=== PATIENT | female | born 1950 | race Caucasian/White ===

== ENCOUNTER 2019-11-08 19:04 | Emergency (ER) | payer MEDICARE, OTHER, SELFPAY ==
--- NOTE | ~2019-11-08 | CT_ITS ---
EXAMINATION: CT abdomen pelvis w con INDICATION: Abdominal pain, history of esophageal cancer TECHNIQUE: Computed tomographic images of the abdomen and pelvis were obtained after the administrati on of 100 cc of Omnipaque 350 intravenous contrast. The dose-length product (DLP) was 153.03 mGy-cm. Automated exposure control and iterative reconstruction technique were employed. COMPARISON: 09/03/2015 FINDINGS: Minimal dependent atelectasis is present in the lung bases. The heart size is normal. There appear to be changes of gastric pull-through. The gallbladder is surgically absent. There is mild en largement of the common bile duct and central intrahepatic ducts which is likely due to post cholecys tectomy state. The liver, spleen, pancreas, and adrenal glands are normal. The kidneys are unremarkab le. No pathologically enlarged abdominal or pelvic lymph nodes are identified. There is no free intra peritoneal gas. There appears to be a percutaneous jejunal tube in the left lower quadrant. There are multiple fluid-filled small bowel loops of the left abdomen which are upper limits of normal in [place]. The distal small bowel is relatively decompressed. The transition is at the site of the balloon in the percutaneous tube. There is mild lumbar spondylosis. IMPRESSION: 1. No CT correlate for the patient's symptoms. 2. Fluid-filled, nondistended loops of small bowel with transition at the site of the balloon of the percutaneous jejunal tube. Reviewed, dictated and finalized at location A.
[2019-11-08 19:10] VITALS: BP 187/104; PULSE 92; RESP 18; TEMP 36.3; O2SAT 99
--- NOTE | 2019-11-08 19:13 | ED.ABDPAIN ---
HPI - Abdominal Pain General Chief Complaint: Abdominal Pain Stated Complaint: abd pain Time Seen by Provider: 11/08/19 19:05 Source: RN notes reviewed History of Present Illness HPI narrative: Patient presents emergency department from home via EMS for abdominal pain. Patient symptoms began yesterday. Associated with diarrhea. Patient states abdominal pain is diffuse and described as sharp and stabbing in nature. She does have a history of esophageal cancer and currently receiving chemo with last chemo this week and is followed at [facility] for oncology. She denies any fevers or chills chest pain shortness of breath vomiting or any other symptoms. States that her J-tube is more taut than it normally is Related Data Home Medications Medication Instructions Recorded Confirmed gabapentin 100 mg PO HS 11/08/19 11/08/19 ondansetron 8 mg PO Q8H 11/08/19 11/08/19 scopolamine base See Rx Instructions .ROUTE .COMPLEX 11/08/19 11/08/19 sucralfate 10 ml PO QID 11/08/19 11/08/19 Allergies Allergy/AdvReac Type Severity Reaction Status Date / Time amoxicillin [From Augmentin] AdvReac Severe Other Verified 11/08/19 20:10 clavulanic acid AdvReac Severe Other Verified 11/08/19 20:10 [From Augmentin] Review of Systems Review of Systems: Narrative: Gen.: Denies fevers or chills ENT: Denies congestion Respiratory: Denies shortness of breath or cough CV: Denies chest pain or palpitations GI: See HPI denies burning, urgency, frequency or hematuria Musculoskeletal: Denies back pain or muscle pain Neuro: Denies numbness, tingling, weakness or focal weakness Skin: Denies rash Except as documented, all other systems reviewed and negative [facility] Past Medical History Medical History (Updated 11/08/19 @ 23:16 by Jigar Avendano DO) Esophageal cancer Social History Social History Smoking status: Never smoker Alcohol intake: current Exam Narrative: Exam Narrative: APPEARANCE: No acute distress, nontoxic, resting in bed HEENT: Normocephalic, atraumatic, OMM RESPIRATORY: No respiratory distress, clear to auscultation bilaterally with no rhonchi wheezing or rales CARDIOVASCULAR: RRR s murmur ABDOMINAL: Soft, nondistended, diffusely tender to palpation, no rebound or guarding MUSCULOSKELETAl: Moves all extremities. No clubbing, cyanosis or edema. NEURO: Awake and alert. Following commands, speech normal, no focal deficits SKIN:: Warm, dry. Normal Color PSYCHIATRIC: Normal affect/mood Course Course Emergency Course: Patient states J tube was placed last in April of this year in [place]. She states that she only takes through food through J-tube and takes nothing orally. Patient did have a gastrectomy performed at [facility] approximately year and a half ago. Her last chemo was this past Sunday Reviewed with Dr. Flores presentation work-up. At this time recommends attempting to take fluid out of balloon of J-tube and then refill eating with a smaller amount of fluid.' Attempted to remove fluid from J-tube and unable to withdraw any fluid. Discussed Dr. Llamas for GI presentation work-up. At this time facility not he will handle J-tube replacement Eddi with patient and will try for transfer to [place] Discussed with Dr. Henry for hospitalist service at [facility] excepts transfer at this time request I discussed with general surgery and request patient start on vancomycin and cefepime Discussed with Dr. Carrera for general surgery at [facility]. Agrees with plan for transfer and will see patient when they arrived at [place] Patient to get up to use the restroom. At that time the J-tube been did give back to its normal give which patient states is now at its normal positioning and states she has improvement of pain Discussed with patient her allergy to Augmentin states that increases her liver enzymes no anaphylactic reaction. Discussed p
[2019-11-08 19:29] LABS: Basophils Percent Auto 0.9 % (0.2-1.2); Eosinophils Percent Auto 0.3 % (0-4.4); Hematocrit 42.3 % (37.0-47.0); Hemoglobin 13.6 g/dL (12.0-15.0); Immature Granulocyte Absolute 0.01 K/mm3 (0.00-0.031); Immature Granulocyte Percent A 0.3 % (0-0.5); Lymphocytes Absolute Auto 0.59 K/mm3 (0.9-3.2); Lymphocytes Percent Auto 18.1 % (18.3-44.2); Mean Corpuscular HGB Conc 32.2 g/dl (32-36); Mean Corpuscular Hemoglobin 29.1 pg (26-34); Mean Corpuscular Volume 90.4 fl (80-100); Mean Platelet Volume 9.9 fl (7.4-10.4); Monocytes Absolute Auto 0.2 K/mm3 (0.1-0.6); Monocytes Percent Auto 6.7 % (2.6-8.5); Neutrophils Absolute Auto 2.4 K/mm3 (1.3-6.7); Neutrophils Percent Auto 73.7 % (45.5-73.1); Platelet Count Result 187 k/mm3 (150-375); Red Blood Count 4.68 M/mm3 (4.2-5.4); Red Cell Distribution Width 14.8 % (11.5-14.5); White Blood Count 3.3 K/mm3 (4.5-10.0)
[2019-11-08 19:40] LABS: Partial Thromboplastin Time 21.8 SECONDS (22.3-36.8); Prothrombin Time 12.8 Seconds (11.1-14.7)
--- NOTE | 2019-11-08 19:45 | PC.NURSE ---
Patient unable to provide urine at this time. Reporting severe nausea and pain.
[2019-11-08 19:46] LABS: Estimated CRCL calculation 63 ml/min; Estimated Glomerular Filt Rate > 60
[2019-11-08 19:54] LABS: Alanine Aminotransferase 72 U/L (4-35); Albumin Level 4.4 g/dL (3.5-5.1); Alkaline Phosphatase 238 U/L (38-126); Anion Gap 13 mmol/L (8-16); Aspartate Amino Transferase 42 U/L (14-36); Bilirubin,Total 0.9 mg/dL (0.2-1.3); Blood Urea Nitrogen 16 mg/dL (7-17); Calcium 9.7 mg/dL (8.4-10.2); Carbon Dioxide 22 mmol/L (22-30); Chloride 101 mmol/L (98-107); Estimated CRCL calculation 63 ml/min; Estimated Glomerular Filt Rate > 60; Glucose 160 mg/dL (65-105); Potassium 3.8 mmol/L (3.4-5.0); Sodium 136 mmol/L (137-145)
[2019-11-08] MEDS: MORPHINE SULFATE (*CRX) 2 MG/ML INJ IV PUSH (19:57)
[2019-11-08] MEDS: SODIUM CHLORIDE 0.9% IV 1,000 ML 999 ML IV CONT (19:58)
[2019-11-08 20:00] VITALS: BP 196/104; PULSE 92; RESP 20; TEMP 36.7; O2SAT 97
[2019-11-08] MEDS: ONDANSETRON INJ 4 MG/2 ML VIAL IV PUSH (20:08)
--- NOTE | 2019-11-08 20:27 | PC.NURSE ---
EDP aware that patient has not been able to provide urine at this time and is being hydrated at this time.
[2019-11-08] MEDS: DICYCLOMINE HCL INJ 20 MG/2 ML VIAL IM (21:07)
[2019-11-08 21:12] VITALS: BP 186/108; PULSE 96; RESP 18; TEMP 36.7; O2SAT 99
--- NOTE | 2019-11-08 21:13 | PC.NURSE ---
Patient still tells me that she is not able to provided urine at this time.
[2019-11-08 21:46] LABS: Lactic Acid Reflex 4.1 mmol/L (0.7-2.1)
[2019-11-08] MEDS: SODIUM CHLORIDE 0.9% IV 500 ML 999 ML IV CONT (22:44)
[2019-11-08 23:11] VITALS: BP 145/83; PULSE 104; RESP 18; TEMP 36.7; O2SAT 98
--- NOTE | 2019-11-08 23:11 | PC.NURSE ---
Called lab to add on Lipase
[2019-11-08 23:20] LABS: Lipase 22 U/L (23-300)
[2019-11-08 23:26] LABS: Add Urine Microscopic? YES; Appearance Urine Clear (Clear); Bacteria Urine Trace /hpf; Bilirubin Urine Negative (Negative); Color Urine Yellow (Yellow); Glucose Urine UA Negative (Negative); Ketones Urine Negative (Negative); Leukocyte Esterase Ur 1+ LEU/UL (Negative); Mucus Urine Rare /lpf; Nitrate Urine Negative (Negative); Protein Urine Negative (Negative); Squamous Epithelial Cell Urine Few /hpf (Few)
[2019-11-08 23:32] LABS: Blood Urine Negative (Negative); Specific Grav Ur 1.088 (1.001-1.035)
--- NOTE | 2019-11-08 23:40 | PC.NURSE ---
called [facility] for transport. ETA [id number]
[2019-11-09 00:29] LABS: Reflex Lactic Acid Yes or No Add Lactic
[2019-11-09] MEDS: LACTATED RINGERS 1,000 ML 80 ML IV CONT (01:00)
[2019-11-09 01:01] VITALS: BP 152/81; PULSE 103; RESP 18; TEMP 36.3; O2SAT 100
[2019-11-09 01:06] LABS: Lactic Acid 4.3 mmol/L (0.7-2.1)
--- NOTE | 2019-11-09 01:32 | PC.NURSE ---
called [facility] to ETA update. ETA 22 minutes.
[2019-11-09 02:10] VITALS: BP 149/88; PULSE 100; RESP 12; TEMP 36.6; O2SAT 99
--- NOTE | 2019-11-09 02:13 | PC.NURSE ---
Lactated Ringers still infusing upon time of discharge. EMS notified that rate is set at 80mL/hr.
== END 2019-11-09 02:14 | disposition short-term general hospital (02) ==
PROVIDERS: Emergency Provider Emergency Medicine; PCP Internal Medicine
DX: R10.9 Unspecified abdominal pain (principal); R11.2 Nausea with vomiting, unspecified; E87.2 Acidosis; C15.9 Malignant neoplasm of esophagus, unspecified; Z79.899 Other long term (current) drug therapy; Z93.4 Other artificial openings of gastrointestinal tract status
CPT/HCPCS: 36415; 74177; 80053; 81001; 83605; 83690; 85025; 85610; 85730; 87040; 87086; 87088; 96361; 96365; 96367; 96372; 96375; 99285; J0500; J0692; J2270; J2405; J3370; J7030; J7040; J7120; Q9967